=== PATIENT | female | born 1950 | race Caucasian/White ===

== ENCOUNTER 2016-12-04 20:54 | Emergency (ER) | payer OTHER ==
[~2016-12-04 20:54] MED LIST: CALCIUM CARBON648 MG PO; COL250 PO; FAMOTIDINE20 MG PO; HALOPERIDOL2 MG PO; IBUPROFEN600 MG PO; LAC PO; MAC100 PO; MILK OF MA400 MG/5 M PO; NORCO1 TA2 PO; PHENOBARBITAL32.4 MG PO; PHENOBARBITAL64.8 MG PO; PRAVASTATIN SOD40 M1 PO; TEGRETOL200 MG PO
[2016-12-04 21:38] LABS: BASOPHIL % 0.1 % (0-2); PLATELET COUNT 266 x10^3mcL (130-400)
[2016-12-04 21:45] LABS: CALCIUM 8.7 mg/dL (8.5-10.1); CARBON DIOXIDE 29.8 mmol/L (21-32); CHLORIDE SERUM 98 mmol/L (98-107); CREATININE SERUM 0.8 mg/dL (0.6-1.0); GFR1 > 60 mL/min; GLUCOSE SERUM 177 mg/dL (74-106); POTASSIUM SERUM 3.5 mmol/L (3.5-5.1); SODIUM SERUM 135 mmol/L (136-145)
[2016-12-04 21:49] LABS: ALBUMIN 3.8 g/dL (3.4-5.0); ALKALINE PHOSPHATASE 217 U/L (46-116); ALT/SGPT 8 U/L (14-59); AMYLASE 81 U/L (25-115); AST/SGOT 14 U/L (15-37); BILIRUBIN TOTAL 0.2 mg/dL (0.20-1.00); LIPASE 319 IU/L (73-393); TOTAL PROTEIN, SERUM 7.7 g/dL (6.4-8.2)
[2016-12-04 23:12] VITALS: BP 164/96
== END 2016-12-04 23:12 | disposition home or self-care (01) ==
LOC: ED 20:54
PROVIDERS: Emergency Medicine
DX: R10.9 Unspecified abdominal pain (principal); R11.10 Vomiting, unspecified
CPT/HCPCS: J2270; J2405; J7030

== ENCOUNTER 2018-01-27 08:44 | Emergency (ER) | payer OTHER ==
[~2018-01-27] VITALS: Ht 157.5 cm; Wt 81.2 kg
[2018-01-27 10:03] LABS: BASOPHIL % 0.5 % (0-2); PLATELET COUNT 307 x10^3mcL (130-400); RED CELL DISTRIBUTION WIDTH 13.3 % (11.5-14.5)
[2018-01-27 10:33] LABS: CALCIUM 8.7 mg/dL (8.5-10.1); CARBON DIOXIDE 25.9 mmol/L (21-32); CHLORIDE SERUM 101 mmol/L (98-107); CREATININE SERUM 0.8 mg/dL (0.6-1.0); GFR1 > 60 mL/min; GLUCOSE SERUM 176 mg/dL (74-106); POTASSIUM SERUM 3.9 mmol/L (3.5-5.1); SODIUM SERUM 134 mmol/L (136-145)
[2018-01-27 10:39] LABS: ALBUMIN 3.5 g/dL (3.4-5.0); ALKALINE PHOSPHATASE 192 U/L (46-116); ALT/SGPT 14 U/L (14-59); AST/SGOT 17 U/L (15-37); BILIRUBIN TOTAL 0.19 mg/dL (0.20-1.00); TOTAL PROTEIN, SERUM 8.1 g/dL (6.4-8.2)
[2018-01-27 11:02] VITALS: BP 154/77
[2018-01-28] MEDS ORDERED: PEPCID20 MG PO (00:13)
[2018-01-28] MEDS ORDERED: PHENOBARBITAL64.8 MG PO (00:13)
[2018-01-28] MEDS ORDERED: PRA40 PO (00:13)
[2018-01-28] MEDS ORDERED: HALOPERIDOL2 MG PO (00:13)
[2018-01-28] MEDS ORDERED: LUBRICANT EYE1 EACH OP (00:14)
[2018-01-28] MEDS ORDERED: TEGRETOL200 MG PO ×2 (00:15→00:16)
[2018-01-28] MEDS ORDERED: CALCIUM CARBON650 MG PO (00:15)
== END 2018-01-27 12:00 | disposition home or self-care (01) ==
LOC: ED 08:44
PROVIDERS: Emergency Medicine
DX: G40.909 Epilepsy, unspecified, not intractable, without status epilepticus (principal); N39.0 Urinary tract infection, site not specified; R03.0 Elevated blood-pressure reading, without diagnosis of hypertension
CPT/HCPCS: 36415; 83880; J0696

== ENCOUNTER 2018-01-27 19:25 | Inpatient (IN) | payer OTHER ==
[~2018-01-27] VITALS: Ht 160 cm; Wt 81.2 kg
[2018-01-27 19:44] VITALS: Ht 160 cm; Wt 81.2 kg
[2018-01-27 21:44] LABS: BASOPHIL % 0.8 % (0-2); PLATELET COUNT 319 x10^3mcL (130-400); RED CELL DISTRIBUTION WIDTH 12.9 % (11.5-14.5)
[2018-01-27 21:46] LABS: CALCIUM 9.1 mg/dL (8.5-10.1); CARBON DIOXIDE 24.2 mmol/L (21-32); CHLORIDE SERUM 97 mmol/L (98-107); CREATININE SERUM 0.8 mg/dL (0.6-1.0); GFR1 > 60 mL/min; GLUCOSE SERUM 181 mg/dL (74-106); POTASSIUM SERUM 3.7 mmol/L (3.5-5.1); SODIUM SERUM 130 mmol/L (136-145)
[2018-01-27 21:52] LABS: ALBUMIN 3.7 g/dL (3.4-5.0); ALKALINE PHOSPHATASE 200 U/L (46-116); ALT/SGPT 18 U/L (14-59); AST/SGOT 20 U/L (15-37); BILIRUBIN TOTAL 0.26 mg/dL (0.20-1.00); TOTAL PROTEIN, SERUM 8.6 g/dL (6.4-8.2)
[2018-01-27 21:53] LABS: CHOLESTEROL 240 mg/dL (<200)
[2018-01-27 23:45] VITALS: BP 171/99
[2018-01-28 00:07] LABS: MAGNESIUM 2.2 mg/dL (1.8-2.4); PHOSPHOROUS 2.8 mg/dL (2.5-4.9)
[2018-01-28] MEDS ORDERED: PEPCID20 MG PO (00:13)
[2018-01-28] MEDS ORDERED: HALOPERIDOL2 MG PO (00:13)
[2018-01-28] MEDS ORDERED: PRA40 PO (00:13)
[2018-01-28] MEDS ORDERED: PHENOBARBITAL64.8 MG PO (00:13)
[2018-01-28] MEDS ORDERED: LUBRICANT EYE1 EACH OP (00:14)
[2018-01-28] MEDS ORDERED: CALCIUM CARBON650 MG PO (00:15)
[2018-01-28] MEDS ORDERED: TEGRETOL200 MG PO ×2 (00:15→00:16)
[2018-01-28 00:35] LABS: FREE T4 0.88 ng/dL (0.76-1.46); T4(THYROXINE) 6.2 ug/dL (4.7-13.3)
[2018-01-28 01:57] LABS: T3 TOTAL 0.98 ng/mL
[2018-01-28 05:45] VITALS: BP 126/68
[2018-01-28 06:09] LABS: CARBON DIOXIDE 25.8 mmol/L (21-32); CHLORIDE SERUM 102 mmol/L (98-107); CREATININE SERUM 0.6 mg/dL (0.6-1.0); GFR1 > 60 mL/min; GLUCOSE SERUM 93 mg/dL (74-106); POTASSIUM SERUM 3.8 mmol/L (3.5-5.1); SODIUM SERUM 137 mmol/L (136-145)
[2018-01-28 07:19] LABS: TRIGLYCERIDES 69 mg/dL (<150)
[2018-01-28 07:21] LABS: HDL CHOLESTEROL 90 mg/dL (40-60)
[2018-01-28 08:20] VITALS: BP 128/65
[2018-01-28 09:49] LABS: BASOPHIL % 0.4 % (0-2); PLATELET COUNT 271 x10^3mcL (130-400); RED CELL DISTRIBUTION WIDTH 13.2 % (11.5-14.5)
[2018-01-28 11:22] VITALS: BP 124/69
[2018-01-28 11:54] VITALS: BP 143/73
[2018-01-28 16:28] LABS: AMPHETAMINE QUAL UR NONE DETECTED (See below)
[2018-01-28 16:33] LABS: UA SPECIFIC GRAVITY <=1.005 (1.005-1.035); microscopic required? YES; urine erythrocyte 1+ (NEGATIVE)
[2018-01-28 20:25] VITALS: BP 141/69
[2018-01-29 05:52] VITALS: BP 129/66
[2018-01-29 06:22] LABS: BASOPHIL % 0.5 % (0-2); PLATELET COUNT 258 x10^3mcL (130-400); RED CELL DISTRIBUTION WIDTH 13.1 % (11.5-14.5)
[2018-01-29 06:38] LABS: CALCIUM 8.1 mg/dL (8.5-10.1); CARBON DIOXIDE 27.2 mmol/L (21-32); CHLORIDE SERUM 104 mmol/L (98-107); CREATININE SERUM 0.7 mg/dL (0.6-1.0); GFR1 > 60 mL/min; GLUCOSE SERUM 90 mg/dL (74-106); MAGNESIUM 2.1 mg/dL (1.8-2.4); PHOSPHOROUS 3.7 mg/dL (2.5-4.9); POTASSIUM SERUM 4.1 mmol/L (3.5-5.1); SODIUM SERUM 139 mmol/L (136-145)
[2018-01-29 08:09] VITALS: BP 136/73
[2018-01-29 08:15] VITALS: BP 136/73
[2018-01-29 11:51] VITALS: BP 137/74
[2018-01-29 16:12] VITALS: BP 133/69
[2018-01-29 21:12] VITALS: BP 118/66
[2018-01-30 05:40] VITALS: BP 114/60
[2018-01-30 06:38] LABS: CALCIUM 7.6 mg/dL (8.5-10.1); CARBON DIOXIDE 26.7 mmol/L (21-32); CHLORIDE SERUM 103 mmol/L (98-107); CREATININE SERUM 0.7 mg/dL (0.6-1.0); GFR1 > 60 mL/min; GLUCOSE SERUM 99 mg/dL (74-106); POTASSIUM SERUM 4.1 mmol/L (3.5-5.1); SODIUM SERUM 137 mmol/L (136-145)
[2018-01-30 06:53] LABS: BASOPHIL % 0.4 % (0-2); PLATELET COUNT 274 x10^3mcL (130-400); RED CELL DISTRIBUTION WIDTH 13.3 % (11.5-14.5)
[2018-01-30 09:26] VITALS: BP 137/70
[2018-01-30] MEDS ORDERED: BACTRIM DS1 TAB PO (11:11)
[2018-01-30 11:51] VITALS: BP 137/70
== END 2018-01-30 13:20 | DRG 720 ==
LOC: ED 19:25 → DU 21:09
PROVIDERS: Family Medicine; Specialist
DX: A41.9 Sepsis, unspecified organism (principal); E43 Unspecified severe protein-calorie malnutrition; G93.41 Metabolic encephalopathy; E87.3 Alkalosis; N39.0 Urinary tract infection, site not specified; R65.20 Severe sepsis without septic shock; G40.909 Epilepsy, unspecified, not intractable, without status epilepticus; E87.1 Hypo-osmolality and hyponatremia; D64.9 Anemia, unspecified; F79 Unspecified intellectual disabilities; R73.03 Prediabetes; I16.0 Hypertensive urgency; I10 Essential (primary) hypertension; E78.00 Pure hypercholesterolemia, unspecified; Z68.33 Body mass index [BMI] 33.0-33.9, adult
CPT/HCPCS: 83880; 84439; G0480; J0696; J7030; Q0092